=== PATIENT | male | born 1980 | race Caucasian/White ===

== ENCOUNTER 2025-03-23 12:37 | Emergency (ER) | payer SELFPAY ==
[2025-03-23] VITALS (15 sets, daily range): BP systolic 126–156; BP diastolic 75–93; PULSE 66–94; RESP 13–28; TEMP 36.8; O2SAT 97–100
--- NOTE | ~2025-03-23 | XR_ITS ---
Clinical Indication: Shortness of breath PA and lateral views of the chest: Comparison: None Findings: The lungs are clear, without evidence of focal consolidation or pleural effusion. Cardiome diastinal silhouette is within normal limits. Bones and soft tissues are unremarkable. Impression: Normal chest. Reviewed, dictated and finalized at [facility]. Impression: Normal chest.
--- NOTE | ~2025-03-23 | CT_ITS ---
CTA brain carotid Ordering provider: Mitchell Mckenna MD History: . Dizziness, ams . Comparison: None. Technique: CT angiogram head and neck was performed following timed intravenous injection of contrast . Thin slice axial images and reformatted coronal images were obtained. Three dimensional reformatted images of the brain were also obtained using a [employer] workstation. Radiation reduction technique ut ilized.The dose-length product was 1700.7 mGy-cm. 100 mL Omnipaque 350 was given IV. FINDINGS: HEAD: --ANTERIOR AND MIDDLE CEREBRAL ARTERIES AND BRANCHES: Normal caliber and contour. --INTERNAL CAROTID ARTERIES: Mild atheromatous disease but no significant stenosis. No occlusion. --BASILAR ARTERY AND BRANCHES: Normal caliber and contour. No atheromatous disease. --POSTERIOR CEREBRAL ARTERIES: Normal caliber and contour --POSTERIOR COMMUNICATING ARTERIES: visualized bilaterally and continues as the posterior cerebral ar teries. --ANEURYSM: None visualized. --BRAIN: Normal for patient's age. --BONES AND SUPERFICIAL SOFT TISSUES: Normal. --PARANASAL SINUSES AND MASTOIDS: Well aerated. NECK: --RIGHT CERVICAL CAROTID SYSTEM: Normal caliber and contour. Percent stenosis per NASCET criteria is 0%. No carotid dissection. Otherwise, no significant atheromatous disease or stenosis of the cervica l carotid system. --LEFT CERVICAL CAROTID SYSTEM: Normal caliber and contour. Percent stenosis per NASCET criteria is 0%. No carotid dissection. Otherwise, no significant atheromatous disease or stenosis of the cervical carotid system. --VERTEBRAL ARTERIES: Normal caliber and contour. --VISUALIZED AORTIC ARCH AND BRANCHING VESSELS: Normal caliber and contour. No significant atheromato us disease. --SOFT TISSUES: Normal. --CERVICAL SPINE: Age appropriate degenerative changes. IMPRESSION: 1. Normal CTA head and neck. Percent stenosis per NASCET criteria is 0%. Reviewed, dictated and finalized at location A.
--- NOTE | 2025-03-23 12:42 | ECG_ITS ---
Test Date: 2025-03-23 12:51:11 Measurements Intervals [place] Rate: 76 P: 26 NM: 148 QRS: 40 QRSD: 106 T: 48 QT: 378 QTc: 426 Interpretive Statements SINUS RHYTHM BASELINE ARTIFACT- II, III, AVF NORMAL ECG No previous ECG available for comparison Electronically Signed On 03-23-2025 12:55:42 CDT by Jonh Lockett D.O.
[2025-03-23 13:03] LABS: Basophils Percent Auto 0.2 % (0.2-1.2); Eosinophils Percent Auto 0.3 % (0-4.4); Hematocrit 45.4 % (42.0-52.0); Hemoglobin 16.1 g/dL (14.0-18.0); Immature Granulocyte Absolute 0.04 K/mm3 (0.00-0.031); Immature Granulocyte Percent A 0.3 % (0-0.5); Lymphocytes Absolute Auto 3.12 K/mm3 (0.9-3.2); Lymphocytes Percent Auto 25.4 % (18.3-44.2); Mean Corpuscular HGB Conc 35.5 g/dl (32-36); Mean Corpuscular Hemoglobin 31.8 pg (26-34); Mean Corpuscular Volume 89.5 fl (80-100); Mean Platelet Volume 9.4 fl (7.4-10.4); Monocytes Absolute Auto 0.6 K/mm3 (0.1-0.6); Monocytes Percent Auto 4.8 % (2.6-8.5); Neutrophils Absolute Auto 8.5 K/mm3 (1.3-6.7); Platelet Count Result 343 k/mm3 (150-375); Red Blood Count 5.07 M/mm3 (4.6-6.20); Red Cell Distribution Width 13.5 % (11.5-14.5); White Blood Count 12.3 K/mm3 (4.5-10.0)
[2025-03-23 13:15] LABS: Alanine Aminotransferase 32 U/L (6-50); Albumin Level 4.9 g/dL (3.5-5.1); Alkaline Phosphatase 99 U/L (38-126); Anion Gap 10 mmol/L (4-12); Aspartate Amino Transferase 38 U/L (17-59); Bilirubin,Total 0.5 mg/dL (0.2-1.3); Blood Urea Nitrogen 14 mg/dL (9-20); Calcium 9.8 mg/dL (8.4-10.2); Carbon Dioxide 21 mmol/L (22-30); Chloride 105 mmol/L (98-107); Estimated CRCL calculation 104 ml/min; Estimated Glomerular Filt Rate > 60; Glucose 99 mg/dL (65-110); Potassium 3.9 mmol/L (3.4-5.0); Sodium 136 mmol/L (137-145)
[2025-03-23 14:42] LABS: Ethanol < 10 mg/dL (<10)
--- NOTE | 2025-03-23 14:46 | ED_ITS ---
HPI - General Adult General Chief complaint: Shortness of Breath/Dyspnea Stated complaint: dyspnea Time Seen by Provider: 03/23/25 13:14 History of Present Illness HPI narrative: This is a 44-year-old male with no medical problems presenting for an episode of dizziness. Patient says that when was driving his car just prior to arrival he suddenly felt dizzy. He said that he thought he might pass out although he that is consciousness. Associated with small amount of chest tightness and some palpitations. He says that he had the overwhelming feeling something being wrong. He said that he felt his vision was sharper than he usually is. The symptoms resolved after approximately 30 minutes while the patient says he still feels odd he says his condition has improved dramatically. Patient is denying headache, weakness to any extremity. He has chronic difficulty swallowing which has been going on for 5 years. No loss of coordination balance. Remote history of panic attacks although he does says this is not feel like one. Related Data Allergies Allergy/AdvReac Type Severity Reaction Status Date / Time No Known Allergies Allergy Verified 03/23/25 15:05 Exam 2 Narrative: APPEARANCE: No apparent distress. Head: atraumatic. EYES: EOMI, NOSE: Atraumatic NECK: Trachea midline RESPIRATORY: No increased rate of breathing CTAB CARDIOVASCULAR: RRR, no peripheral edema ABDOMINAL: Non-distended soft nontender MUSCULOSKELETAl: No obvious deformities NEURO: Alert. Cranial nerves 2-12 grossly intact. Sensation light touch, motor function cerebellar function intact for 4 extremities. Gait exam was normal. SKIN:: Warm, dry. Normal color PSYCHIATRIC: Anxious. Course Vital Signs Vital signs: Vital Signs Temperature 98.3 F 03/23/25 12:44 Pulse Rate 77 03/23/25 12:44 Respiratory Rate 18 03/23/25 12:44 Blood Pressure 156/93 H 03/23/25 12:44 Pulse Oximetry 100 03/23/25 12:44 Oxygen Delivery Room Air 03/23/25 12:44 Temperature 98.3 F 03/23/25 12:44 Pulse Rate 79 03/23/25 16:07 Respiratory Rate 13 03/23/25 16:07 Blood Pressure 126/79 03/23/25 15:46 Pulse Oximetry 100 03/23/25 16:07 Oxygen Delivery Room Air 03/23/25 12:44 Medical Decision Making [facility] Narrative Medical decision making narrative: -Course: 44-year-old male presenting with an episode dizziness and overwhelming dread while driving his car. Broad workup obtained including CTA of the head and neck, troponin x2, EKG chest x-ray and basic labs, urinalysis, and urine drug screen. Patient's workup was negative without any causative findings. He was monitored in the ED for several hours with no recurrence of his symptoms. On re-evaluation is resting comfortably with no complaints. Unclear cause of his episode at this time although anxiety/panic attacks are definitely consideration. Patient started follow-up with primary care physician. Given strict return precautions if he develops any new or worsening symptoms to return back to the emergency department. Patient is in agreement with plan. -DDX includes but is not limited to: ACS pneumonia, PTX, PE, anxiety/panic attack, dysrhythmia -Independent interpretation of studies: Independent EKG interpretation: Rhythm [sinus], Rate [76], [place] -[normal], [place] -[normal], QRS [narrow], QTC [normal], T waves -[negative for concerning inversions], ST Segments - [Negative for concerning elevations] Final interpretations: [Normal Sinus Rhythm] -Dx tests considered but not ordered: PE - perc negative Vital Signs Vital Signs: Vital Signs Temperature 98.3 F 03/23/25 12:44 Pulse Rate 77 03/23/25 12:44 Respiratory Rate 18 03/23/25 12:44 Blood Pressure 156/93 H 03/23/25 12:44 Pulse Oximetry 100 03/23/25 12:44 Oxygen Delivery Room Air 03/23/25 12:44 Temperature 98.3 F 03/23/25 12:44 Pulse Rate 79 03/23/25 16:07 Respiratory Rate 13 03/23/25 16:07 Blood Pressure 126/79 03/23/25 15:46 Pulse Oximetry 100 03/23/25 16:07 Oxygen Delivery Room Air 03/23/25 12:44 Lab Data 03/23/25 12:57 03/23/25 12:57 Labs: Lab Results 03/23/25 03/23/25 Range/Units 12:57 14:37 WBC 12.3 H (4.5-10.0) K/mm3 RBC 5.07 (4.6-6.20) M/mm3 Hgb 16.1 (14.0-18.0) g/dL Hct 45.4 (42.0-52.0) % MCV 89.5 (80-100) fl MCH 31.8 (26-34) pg MCHC 35.5 (32-36) g/dl RDW 13.5 (11.5-14.5) % Plt Count 343 (150-375) k/mm3 MPV 9.4 (7.4-10.4) fl Immature Gran % (Auto) 0.3 (0-0.5) % Neut % (Auto) 69.0 (45.5-73.1) % Lymph % (Auto) 25.4 (18.3-44.2) % [place] % (Auto) 4.8 (2.6-8.5) % Eos % (Auto) 0.3 (0-4.4) % Baso % (Auto) 0.2 (0.2-1.2) % Lymph # (Auto) 3.12 (0.9-3.2) K/mm3 [place] # (Auto) 0.6 (0.1-0.6) K/mm3 Eos # (Auto) 0.0 (0-0.3) K/mm3 Baso # (Auto) 0.0 (0.0-0.1) K/mm3 Abs Immat Gran (auto) 0.04 H (0.00-0.031) K/mm3 Absolute Neuts (auto) 8.5 H (1.3-6.7) K/mm3 Absolute Nucleated RBC 0.000 (0.0-0.012) K/mm3 Nucleated RBC % 0.0 (0.0-0.2) % Sodium 136 L (137-145) mmol/L Potassium 3.9 (3.4-5.0) mmol/L Chloride 105 (98-107) mmol/L Carbon Dioxide 21 L (22-30) mmol/L Anion Gap 10 (4-12) mmol/L BUN 14 (9-20) mg/dL Creatinine 0.80 (0.7-1.3) mg/dL Estim Creat Clear Calc 104 ml/min Estimated GFR > 60 (59 - ) Glucose 99 (65-110) mg/dL Calcium 9.8 (8.4-10.2) mg/dL Total Bilirubin 0.5 (0.2-1.3) mg/dL AST 38 (17-59) U/L ALT 32 (6-50) U/L Alkaline Phosphatase 99 (38-126) U/L Troponin I < 0.012 (0.000-0.034) ng/mL NT-Pro-B Natriuret Pep 46 (19.9-100) pg/mL Total Protein 8.0 (6.3-8.2) g/dL Albumin 4.9 (3.5-5.1) g/dL Urine Color Yellow (Yellow) Urine Appearance Clear (Clear) Urine pH 7.5 (5.0-9.0) Ur Specific [place] 1.007 (1.001-1.035) Urine Protein Negative (Negative) mg/dL Urine Glucose (UA) Negative (Negative) mg/dL Urine Ketones Trace H (Negative) mg/dL Ur Blood (Man) Non-hemolyzed trace (Negative) Urine Nitrate Negative (Negative) Urine Bilirubin Negative (Negative) Urine Urobilinogen 0.2 (<2.0) mg/dL Leukocyte Esterase Rfl Trace H (Negative) KATHIA/UL Urine RBC 0-2 (0-2) /hpf Urine WBC 0-5 (0-3) /hpf Ur Squamous Epith Cells None seen (Few) /hpf Urine Bacteria None seen /hpf Urine Casts 0-2 Urine Opiates Screen Negative (Negative) Urine Methadone Screen Negative (Negative) Ur Barbiturates Screen Negative (Negative) Ur Phencyclidine Scrn Negative (Negative) Ur Amphetamine Screen Negative (Negative) U Benzodiazepines Scrn Negative (Negative) Urine Cocaine Screen Negative (Negative) U Cannabinoids Screen Negative (Negative) Ethyl Alcohol < 10 (<10) mg/dL Discharge Plan Discharge Clinical Impression: Dizziness Patient Disposition: Home Condition: Stable Instructions: Antibiotic Form, Dizziness (ED) Additional Instructions: You were seen in the emergency department after an episode of difficulty breathing. It is unclear what the cause of this episode was. Please follow-up with your primary care physician in the next 4-5 days for further management. If you read develop any symptoms or develop any new symptoms please return to the ED. Patient Language: Panamanian Follow-up/Referrals: Wilmer Jarrett MD [Physician] - 1 Week UNKNOWN,DOCTOR [Primary Care Provider] -
[2025-03-23 14:47] LABS: Add Urine Microscopic? YES; Appearance Urine Clear (Clear); Bacteria Urine None Seen /hpf; Bilirubin Urine Negative (Negative); Blood Urine Non-Hemolyzed Trace (Negative); Color Urine Yellow (Yellow); Glucose Urine UA Negative (Negative); Ketones Urine Trace mg/dL (Negative); Leukocyte Esterase Ur Trace LEU/UL (Negative); Nitrate Urine Negative (Negative); Non Pathogenic Casts 0-2; Protein Urine Negative (Negative); RBC Urine 0-2 /hpf (0-2); Specific Grav Ur 1.007 (1.001-1.035); Squamous Epithelial Cell Urine None Seen /hpf (Few); Urobilinogen Urine 0.2 mg/dL (<2.0); WBC Urine 0-5 /hpf (0-3); pH Urine 7.5 (5.0-9.0)
[2025-03-23 14:51] LABS: NT Pro B Type Natriuretic Pept 46 pg/mL (19.9-100)
[2025-03-23 14:54] LABS: Troponin I < 0.012 ng/mL (0.000-0.034)
[2025-03-23 15:04] LABS: Amphetamine Screen Urine Negative (Negative); Barbiturate Screen Urine Negative (Negative); Benzodiazepines Screen Urine Negative (Negative); Cannabinoid Screen Urine Negative (Negative); Cocaine Screen Urine Negative (Negative); Methadone Screen Urine Negative (Negative); Opiate Screen Urine Negative (Negative); Phencyclidine Screen Urine Negative (Negative)
--- OUTSIDE RECORDS SUMMARY | 2025-03-23 15:37 | XMS_ITS | Clinical Summary ---
Author Organization [facility] Address [address] [place] [address] Phone Care Team Providers Care Grocery Clerk Selling Name Role Phone Unavailable Primary Care Provider Unavailabl e Allergies No known active allergies Medications No known medications Active Problems No known active problems Family History Medical History Relation Name Comments Other Mother Relation Name Status Comments Father Mother Alive Social History Tobacco Use Types Packs/Day Years Used Date Smoking Tobacco: Every Day Cigarettes Alcohol Use Standard Drinks/Week Comments Yes 0 (1 standard drink = 0.6 oz pur e alcohol) rarely Sex and Gender Information Value Date Recorded Sex Assigned at Not on file Legal Sex Male 4:10 PM [employer] TRA[employer] Gender Identity Not on file Sexual Orientation Not on file Last Filed Vital Signs Vital Sign Reading Time Taken Comments Blood Pressure 144/82 10/22/2013 4:14 PM [employer]PP[employer] TRAINER Pulse 84 10/22/2013 4:14 PM PUPPY TRAINER Temperature 36.9 C (98.4 F) 10/22/2013 4:14 PM PUPPY TRAINER Respiratory Rate 21 10/22/2013 4:14 PM PUPPY TRAINER Oxygen Saturation 99% 10/22/2013 4:14 PM PUPPY TRAINER Inhaled Oxygen Concentration - - Weight 88.5 kg (195 lb) 10/22/2013 4:14 PM PUPPY TRAINER Height 177.2 cm (5' 9.75) 10/22/2013 4:14 PM CS T Body Mass Index 28.18 10/22/2013 4:14 PM PUPPY TRAINER Plan of Treatment Health Maintenance Due Date Last Done Comments DTAP/TDAP/TD VACCINES (1 - Tdap) 1997 HEPATITIS B VACCINES (1 of 3 - 19+ 3-dose series) 1997 COLORECTAL SCREENING 2023 Colorectal Cancer Screening 2023 FIT-DNA Q 3 years 2023 FIT/FOBT Q 1 year 2023 Flex Sig/CT Colonography Q 5 years 2023 INFLUENZA VACCINE (#1) 2024 HPV VACCINES Aged Out No longer eligi ble based on patient's age to complete this topic Insurance [place] [address] BLUE ACCESS/TRUE BLUE PPO
--- NOTE | 2025-03-23 16:26 | ECG_ITS ---
Test Date: 2025-03-23 16:55:16 Measurements Intervals [place] Rate: 70 P: 63 IN: 192 QRS: 44 QRSD: 103 T: 44 QT: 393 QTc: 426 Interpretive Statements SINUS RHYTHM BASELINE ARTIFACT- I, II, III, AVR, AVL, AVF, V1 NORMAL ECG Compared to ECG 03/23/2025 12:51:11 No significant changes Electronically Signed On 03-23-2025 20:13:49 CDT by Jonh Lockett D.O.
[2025-03-23 17:28] LABS: Troponin I < 0.012 ng/mL (0.000-0.034)
== END 2025-03-23 17:44 | disposition home or self-care (01) ==
PROVIDERS: Emergency Medicine; Emergency Provider Emergency Medicine
DX: R42 Dizziness and giddiness (principal)
CPT/HCPCS: 36415; 70496; 70498; 71046; 80053; 80307; 81001; 82077; 83880; 84484; 85025; 93005; 99284; Q9967